=== PATIENT | female | born 1990 ===

== ENCOUNTER 2020-12-22 05:50 | Day surgery (SDC) | payer OTHER ==
[~2020-12-22 05:50] MED LIST: ANTICONCEPTIVAS
== END 2020-12-22 10:30 | disposition home or self-care (01) ==
LOC: CIR.AMB 05:50
PROVIDERS: ATTEND Specialist
DX: D25.0 Submucous leiomyoma of uterus (principal); Z20.822 Contact with and (suspected) exposure to COVID-19